=== PATIENT | female | born 1990 | race Caucasian/White ===

== ENCOUNTER 2021-06-21 23:28 | Emergency (ER) | payer OTHER, BC | END 2021-06-22 03:10 | disposition home or self-care (01) | LOC: JD.ED 23:28 | DX: M25.562 Pain in left knee (principal); M25.512 Pain in left shoulder; R07.89 Other chest pain; Z88.0 Allergy status to penicillin; Z88.5 Allergy status to narcotic agent; Z88.1 Allergy status to other antibiotic agents; Y04.0XXA Assault by unarmed brawl or fight, initial encounter | CPT/HCPCS: 71046; 71046-26; 73030-26-LT; 73030-LT; 99284-25 ==

== ENCOUNTER 2021-11-01 10:39 | Day surgery (SDC) | payer BC, OTHER ==
[~2021-11-01 10:39] MED LIST: EPINEPHrine 1 MG/ML 30 ML MDV IRR SCH; EPINEPHrine 1 MG/ML SDV ONE; Lactated Ringers 1,000 ML IV SCH; Lidocaine 1% 4 ML ONE; Lidocaine 1%/Sod Bicarbonate in NS 8.4% 1 ML Syringe IDERM PRN; Midazolam 1 MG/ML 2 ML SDV ONE; Ondansetron 4 MG/2 ML SDV ONE; Propofol 200 MG/20 ML SDV ONE; Rocuronium 50 MG/5 ML Vial ONE; Ropivacaine 0.5% 5 MG/ML 30 ML SDV ONE; Sodium Chloride 0.9% 10 ML Syringe FLUSH PRN; Sodium Chloride 0.9% 10 ML Syringe FLUSH SCH; ceFAZolin 1 GM Vial ONE; fentaNYL 100 MCG/2 ML SDV ONE
[2021-11-01] MEDS ORDERED: Lactated Ringers 1,000 ML ONE (12:03)
[2021-11-01] MEDS ORDERED: Ondansetron 4 MG/2 ML SDV ONE (12:03)
[2021-11-01] MEDS ORDERED: Neostigmine Methylsulfate 10 MG/10 ML MDV ONE (12:32)
[2021-11-01] MEDS ORDERED: Ondansetron 4 MG/2 ML SDV IVPUSH PRN (12:50)
[2021-11-01] MEDS ORDERED: fentaNYL 100 MCG/2 ML SDV IVPUSH PRN (12:50)
[2021-11-01] MEDS ORDERED: diphenhydrAMINE 50 MG/ML SDV IVPUSH PRN (12:50)
== END 2021-11-01 14:50 | disposition home or self-care (01) ==
LOC: JD.SDS 10:39
PROVIDERS: ATTEND Orthopaedic Surgery
DX: S43.432A Superior glenoid labrum lesion of left shoulder, initial encounter (principal); M75.22 Bicipital tendinitis, left shoulder; F41.9 Anxiety disorder, unspecified; F32.A Depression, unspecified; K21.9 Gastro-esophageal reflux disease without esophagitis; Z86.16 Personal history of COVID-19; Z88.0 Allergy status to penicillin; Z88.5 Allergy status to narcotic agent; Z88.8 Allergy status to other drugs, medicaments and biological substances; Z79.899 Other long term (current) drug therapy; Z98.890 Other specified postprocedural states
CPT/HCPCS: 29807; C1713; J0171; J2250; J2405; J2704; J2710; J2795; J3010; J3370; J7050; J7120; 01630; 64415; 76942; J0690